=== PATIENT | female | born 1975 | race Caucasian/White ===

== ENCOUNTER → 2024-09-02 09:31 | Outpatient (BNVA) | payer BC, SELFPAY | PROVIDERS: Visit Provider Nurse Practitioner Psychiatric/Mental Health | DX: Z13.30 Encounter for screening examination for mental health and behavioral disorders, unspecified (principal); F11.21 Opioid dependence, in remission; F10.21 Alcohol dependence, in remission ==

== ENCOUNTER 2024-12-30 11:04 | Outpatient (AMB) | payer BC, SELFPAY ==
[2024-12-30 11:11] VITALS: BP 110/70; PULSE 62; RESP 19; O2SAT 98
--- NOTE | 2024-12-30 11:11 | A.OFFVISCC_ITS ---
Vital Signs 12/30/24 11:11 BP 110/70 Blood Pressure Location Rt brachial Position Sitting Respiration 19 Pulse 62 Pulse Source Pulse Oximeter Pulse Oximetry (%) 98 Intake Visit Reasons: MAT Allergies No Known Allergies Allergy (Verified 12/28/24 14:15) HPI HPI MAT: Details: Patient presents for follow up Has been taking 12mg QD (1/2 film in AM and lunch) Does not like splitting dose because she has lost film a couple of times Discussed taking full dose in AM to see if that was beneficial Review of Systems Const Reports as per HPI and Reports no additional complaints Physical Exam Vital Signs: Last Vital Signs Pulse 62 12/30/24 11:11 Resp 19 12/30/24 11:11 BP 110/70 12/30/24 11:11 Pulse Ox 98 12/30/24 11:11 Const General: cooperative and healthy appearing Nutritional Appearance: average body habitus Orientation/consciousness: patient oriented x3 Limitations: no limitations Neuro General: patient oriented x3 Psych Appearance: well kempt Speech and movement: Normal speech and movement present Affect: normal affect Attitude: cooperative Thought process: Normal thought process present Thought content: Normal thought content present Insight: Good insight present (Psych) Judgement: Good judgement present (Psych) Assessment & Plan Assessment & Plan (1) Opioid use disorder, severe, in sustained remission: Code(s): F11.21 - Opioid dependence, in remission Category: Medical Plan: * continue suboxone at 12mg daily * follow up 4 weeks (2) Alcohol use disorder, severe, in sustained remission: Code(s): F10.21 - Alcohol dependence, in remission Category: Medical Plan: * relapse prevention discussion Medications: Refilled buprenorphine-naloxone 12-3 mg (Suboxone) 1 film buccal Q24H 21 ea 1RF buprenorphine-naloxone 12-3 mg (Suboxone) 1 film buccal Q24H 30 ea 0RF
--- OUTSIDE RECORDS SUMMARY | 2024-12-30 12:54 | XMS_ITS | Encounter Summary ---
Author Organization [facility] Address [address] [place] [address] Care Team Providers Care Title Specialist Name Role Phone Esther, Pcp Primary Care Provider Priscila Minaya PA-C Primary Care Provider + Encounter Details Date Type Department Care Team Description 03/13/2016 Release of Information Medical Records [address] [place] [id number] Abstract, Provider Social History Tobacco Use Types Packs/Day Years Used Date Smoking Tobacco: Never Assessed Sex Assigned at Date Recorded Not on file documented as of this encounter Plan of Treatment Not on file documented as of this encounter Visit Diagnoses Not on filedocumented in this encounter Care Teams Title Specialist Relationship Specialty Start Date End Date Esther, Pcp PCP - General Internal Medicine 12/06/20 04/24/21 Priscila Boo PA-C PCP - General Internal Medicine 04/25/21 documented as of this encounter
--- OUTSIDE RECORDS SUMMARY | 2024-12-30 12:54 | XMS_ITS | Clinical Summary ---
Author Organization [facility] Address [address] [place] [address] Care Team Providers Care Barrel Centerer Name Role Phone Priscila Boo PA-C Primary Care Provider + Allergies No known active allergies Medications Medication Sig Dispensed Refills Start Date End Date Status Buprenorphine HCl-Naloxone HCl (SUBOXONE SL) Place 20 mg under the tongue daily. 0 Active busPIRone (BUSPAR) 7.5 MG tablet Take 1 Tab by mouth 3 times daily. 90 Tab 11 05/27/2016 Active Active Problems Problem Noted Date Abnormal CT of the abdomen 03/20/2016 Opiate addiction Overview: Quit 2007. Right shoulder pain DDD (degenerative disc disease), cervica l CTS (carpal tunnel syndrome) Overview: bilateral, NEOS Ovarian cyst Overview: left Abnormal EKG Tobacco use disorder Immunizations Name Administration Dates Next Due TD (STATE SUPPLIED FOR ADULTS AND CHILDREN) 05/03 Family History Medical History Relation Name Comments Cancer of the Breast Aunt 2 moms si de Cancer of the Breast Maternal Grandmother Cancer of the Lung Maternal Grandmother s moker Cancer of the Breast Mother Cancer of the Breast Paternal Grandmother Relation Name Status Comments Aunt 1 Aunt 2 Maternal Grandmother Mother Paternal Grandmother Social History Tobacco Use Types Packs/Day Years Used Date Smoking Tobacco: Every Day Cigarettes 1 30 Started: 1989 Smokeless Tobacco: Never Tobacco Cessation:Ready to Q uit: No; Counseling Given: Yes Alcohol Use Standard Drinks/Week Comments No 0 (1 standard drink = 0.6 oz pur e alcohol) Sex Assigned at Date Recorded Not on file Last Filed Vital Signs Vital Sign Reading Time Taken Comments Blood Pressure 100/66 05/27/2016 9:10 AM EDT Pulse 60 05/27/2016 9:10 AM EDT Temperature 36.9 ??C (98.4 ??F) 05/27/2016 9:10 AM ED T Respiratory Rate 16 05/27/2016 9:10 AM EDT Oxygen Saturation - - Inhaled Oxygen Concentration - - Weight 45.6 kg (100 lb 9.6 oz) 05/27/2016 9:10 A M EDT Height 154.9 cm (5' 1 ) 05/27/2016 9:10 AM EDT Body Mass Index 19.01 05/27/2016 9:10 AM EDT Plan of Treatment Health Maintenance Due Date Last Done Comments Covid-19 Vaccine (#1) 1974 MAMMOGRAM 2014 DTAP/TDAP/TD (1 - Tdap) 05/28/2016 05/27/2016 TOBACCO CHECK/ADVISE 03/20/2018 03/20/2016 BASELINE HEALTH EXAM 40-64 05/27/2018 05/27/2016 CERVICAL CANCER SCREENING 04/09/2019 04/09/2016 CHOLESTEROL SCREENING 03/21/2021 03/21/2016 COLON CANCER SCREENING 2024 SHINGLES VACCINE (1 of 2) 2024 INFLUENZA (#1) 2024 BMI CHECK/ADVISE 11/02/2024 PNEUMOCOCCAL VACCINE FOR HIGH RISK PATIENTS (#1) 05/10 Care Teams Barrel Centerer Relationship Specialty Start Date End Date Priscila Boo PA-C PCP - General Internal Medicine 04/25/21
== END 2024-12-30 11:32 | disposition home or self-care (01) ==
PROVIDERS: Visit Provider Nurse Practitioner Psychiatric/Mental Health
DX: F11.21 Opioid dependence, in remission (principal); F10.21 Alcohol dependence, in remission
CPT/HCPCS: 99214

== ENCOUNTER → 2024-12-30 11:04 | Outpatient (BNVA) | payer BC, SELFPAY | PROVIDERS: Visit Provider Nurse Practitioner Psychiatric/Mental Health ==

== ENCOUNTER 2025-02-13 13:44 | Outpatient (AMB) | payer BC, SELFPAY ==
--- NOTE | 2025-02-13 14:06 | MHC.OFFVIS ---
Vital Signs 02/13/25 14:08 Height 5 ft Weight 102 lb BMI 19.9 BP 132/78 Pulse 94 Pulse Oximetry (%) 97 Intake Visit Reasons: MAT Allergies No Known Allergies Allergy (Verified 02/13/25 14:09) HPI HPI MAT: Details: She is doing well on Suboxone 12/3 daily but was upset with wait. Review of Systems Const All systems reviewed & are unremarkable except as noted in HPI and below Physical Exam Vital Signs: Last Vital Signs Pulse 94 02/13/25 14:08 BP 132/78 02/13/25 14:08 Pulse Ox 97 02/13/25 14:08 BMI result Body Mass Index 19.9 Const General: cooperative Results AMB 14 Panel Urine Drug Screen Urine Marijuana (THC) Positive Last Edit by Matt Uriarte CMA on 02/13/25 14:14 Urine Cocaine Negative Last Edit by Matt Uriarte CMA on 02/13/25 14:14 Urine Morphine Negative Last Edit by Matt Uriarte CMA on 02/13/25 14:14 Urine Methamphetamine Negative Last Edit by Matt Uriarte CMA on 02/13/25 14:14 Urine Amphetamine Negative Last Edit by Matt Uriarte CMA on 02/13/25 14:14 Urine Benzodiazepine Negative Last Edit by Matt Uriarte CMA on 02/13/25 14:14 Urine Barbiturates Negative Last Edit by Matt Uriarte CMA on 02/13/25 14:14 Urine Methadone Negative Last Edit by Matt Uriarte CMA on 02/13/25 14:14 Urine Buprenorphine Positive Last Edit by Matt Uriarte CMA on 02/13/25 14:14 Urine Tricyclic Antidepressant Negative Last Edit by Matt Uriarte CMA on 02/13/25 14:14 Urine MDMA Negative Last Edit by Matt Uriarte CMA on 02/13/25 14:14 Urine Oxycodone Negative Last Edit by Matt Uriarte CMA on 02/13/25 14:14 Urine Phencyclidine Negative Last Edit by Matt Uriarte CMA on 02/13/25 14:14 Urine Propoxyphene Negative Last Edit by Matt Uriarte CMA on 02/13/25 14:14 AMB Test Urine AMB Test Urine Negative Last Edit by Matt Uriarte CMA on 02/13/25 14:14 Results Reviewed Results Reviewed: Laboratory Last Values [facility] Negative 02/13/25 14:10 POC Urine Buprenorphine Positive 02/13/25 14:10 POC Urine Morphine Negative 02/13/25 14:10 POC Urine Oxycodone Negative 02/13/25 14:10 POC Urine Methadone Negative 02/13/25 14:10 POC Urine Propoxyphene Negative 02/13/25 14:10 POC Urine Barbiturates Negative 02/13/25 14:10 POC U Tricyclic Antidpr Negative 02/13/25 14:10 POC Urine PCP Negative 02/13/25 14:10 POC Ur Amphetamines Negative 02/13/25 14:10 POC Ur Methamphetamine Negative 02/13/25 14:10 POC Urine MDMA Negative 02/13/25 14:10 POC Ur Benzodiazepine Negative 02/13/25 14:10 POC Urine Cocaine Negative 02/13/25 14:10 POC Ur Marijuana (THC) Positive 02/13/25 14:10 Assessment & Plan Assessment & Plan (1) Alcohol use disorder, severe, in sustained remission: Comment: She is doing well Code(s): F10.21 - Alcohol dependence, in remission Category: Medical Plan: See in two months. Check labs Hepatitis C and HIV and Hep B and others then. (2) Opioid use disorder, severe, in sustained remission: Code(s): F11.21 - Opioid dependence, in remission Category: Medical Plan: na Orders: Orders AMB 14 Panel Urine Drug Screen Today Z51.81 - Encounter for therapeutic drug level monitoring AMB HCG Urine Test Today Z32.02 - Encounter for test, result negative Medications: New buprenorphine-naloxone 12-3 mg (Suboxone) 1 film sublingual Q24H 30 days 30 ea 1RF Coding Level of Care Code Est Pt Level 3 (89084) Diagnoses Alcohol use disorder, severe, in sustained remission F10.21 Opioid use disorder, severe, in sustained remission F11.21
[2025-02-13 14:08] VITALS: BP 132/78; PULSE 94; O2SAT 97; BMI 19.9
== END 2025-02-13 14:37 | disposition home or self-care (01) ==
LOC: HO.HCC 13:44
PROVIDERS: Visit Provider Internal Medicine
DX: F10.21 Alcohol dependence, in remission (principal); F11.21 Opioid dependence, in remission; Z51.81 Encounter for therapeutic drug level monitoring; Z32.02 Encounter for pregnancy test, result negative
CPT/HCPCS: 99213

== ENCOUNTER → 2025-02-13 13:44 | Outpatient (BNVA) | payer BC, SELFPAY | PROVIDERS: Visit Provider Internal Medicine | DX: F11.21 Opioid dependence, in remission (principal); F10.21 Alcohol dependence, in remission; Z51.81 Encounter for therapeutic drug level monitoring; Z79.01 Long term (current) use of anticoagulants | CPT/HCPCS: 80307; 81025 ==

== ENCOUNTER 2025-03-24 13:15 | Outpatient (AMB) | payer BC, SELFPAY ==
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
[2025-03-24 13:28] VITALS: BP 123/68; PULSE 110; RESP 16; TEMP 36.8; O2SAT 95; BMI 19.8
== END 2025-03-24 14:29 | disposition home or self-care (01) ==
LOC: HO.HMCFM 13:16
PROVIDERS: Visit Provider Nurse Practitioner Family
DX: Z00.00 Encounter for general adult medical examination without abnormal findings (principal); F41.9 Anxiety disorder, unspecified; B18.2 Chronic viral hepatitis C; F32.A Depression, unspecified; F90.9 Attention-deficit hyperactivity disorder, unspecified type; F43.10 Post-traumatic stress disorder, unspecified; H40.9 Unspecified glaucoma; F10.90 Alcohol use, unspecified, uncomplicated; F17.210 Nicotine dependence, cigarettes, uncomplicated; Z12.2 Encounter for screening for malignant neoplasm of respiratory organs; Z12.31 Encounter for screening mammogram for malignant neoplasm of breast; Z12.11 Encounter for screening for malignant neoplasm of colon

== ENCOUNTER → 2025-03-24 13:15 | Outpatient (BNVA) | payer BC, SELFPAY | PROVIDERS: Visit Provider Nurse Practitioner Family | DX: Z00.00 Encounter for general adult medical examination without abnormal findings (principal); Z23 Encounter for immunization; F41.9 Anxiety disorder, unspecified; F32.A Depression, unspecified; F90.9 Attention-deficit hyperactivity disorder, unspecified type; F43.10 Post-traumatic stress disorder, unspecified; B18.2 Chronic viral hepatitis C; H40.9 Unspecified glaucoma; F10.90 Alcohol use, unspecified, uncomplicated; F17.210 Nicotine dependence, cigarettes, uncomplicated; Z71.85 Encounter for immunization safety counseling; Z13.30 Encounter for screening examination for mental health and behavioral disorders, unspecified | CPT/HCPCS: 90471; 90715; 96127 ==

== ENCOUNTER 2025-06-14 13:27 | Outpatient (AMB) | payer BC, SELFPAY ==
[2025-06-14 13:29] VITALS: BP 100/70; PULSE 98; O2SAT 96; BMI 20.5
--- NOTE | 2025-06-14 13:29 | A.OFFVIS_ITS ---
Vital Signs 06/14/25 13:29 Height 5 ft Weight 105 lb BMI 20.5 BP 100/70 Blood Pressure Location Lt brachial Pulse 98 Pulse Source Pulse Oximeter Pulse Oximetry (%) 96 Oxygen Delivery Method Room Air Intake Visit Reasons: MAT Allergies No Known Allergies Allergy (Verified 06/14/25 13:29) Medication List - Last Reconciled 06/14/25 by DENISSE Nichols methylphenidate HCl ER (Concerta) 36 mg PO DAILY nicotine 1 patch transdermal DAILY 6 weeks sertraline (Zoloft) 25 mg PO DAILY trazodone 50 mg PO BEDTIME PRN HPI Comments Details: A 50-year-old female presents for follow-up visit r/t CONSUELO in sustained remission. Reports mild cravings with buprenorphine-naloxone 12-3 mg daily and is requesting an increased dose. Denies use of opioids and other substances with the exception of intermittent alcohol consumption, smoking cigarettes and vaping cannabis. Education provided re: risk reducation to minimize quantity/frquency. [facility] Medical History (Updated 03/25/25 @ 07:17 by Rogelio Anna CNP) Back disorder Drug addiction PTSD (post-traumatic stress disorder) Bipolar 1 disorder Anxiety Hep C w/o coma, chronic Sinusitis Ovarian cyst Family History (Updated 03/24/25 @ 13:35 by Susi Sood MA) Mother Alcohol abuse FH: mental illness Substance abuse High blood pressure Breast cancer Maternal Grandmother Brain cancer Father Alcohol abuse Social History (Updated 03/24/25 @ 13:27 by Susi Sood MA) Housing: House Patient Tobacco Use Status: Current everyday Tobacco user Cigarette Packs Per Day: 1 Cigarettes Per Day: 20 e-Cigarette/Vaping Use: Never Used Second Hand Smoke Exposure: No Substance Use Type: Marijuana service: No Current occupational status: employed Current occupation: retail Current occupational exposures/hazards: No Cognitive needs: No Hearing needs: No Vision needs: Yes Review of Systems Const All systems reviewed & are unremarkable except as noted in HPI and below Physical Exam Vital Signs: Last Vital Signs Pulse 98 06/14/25 13:29 BP 100/70 06/14/25 13:29 Pulse Ox 96 06/14/25 13:29 Oxygen Delivery Method Room Air 06/14/25 13:29 BMI result Body Mass Index 20.5 Const General: cooperative and well groomed Orientation/consciousness: patient oriented x3 Limitations: no limitations Neuro General: patient oriented x3 Psych Appearance: well kempt Mental Status: mental status grossly normal Speech and movement: Normal speech and movement present Affect: normal affect Attitude: cooperative Thought process: Normal thought process present Thought content: Normal thought content present Insight: Good insight present (Psych) Judgement: Good judgement present (Psych) Assessment & Plan Assessment & Plan (1) Opioid use disorder, severe, in sustained remission: Code(s): F11.21 - Opioid dependence, in remission Category: Medical Plan Plan of care is to increase the dose of buprenorphine-naloxone from 12-3 mg daily to buprenorphine-naloxone 8-2 mg BID. Practice risk reduction for alcohol consumption, smoking, and vaping cannabis. Medications: New buprenorphine-naloxone 8-2 mg (Suboxone) Place 1 film on inside of (each) cheek, twice per day. 1 film sublingual BID 60 ea 1RF 30 days Patient Instructions: - Start on increased dose of buprenorphine-naloxone as prescribed. - Practice risk reduction for alcohol consumption, smoking, and vaping cannabis. - Follow-up in 2 months or sooner if needed. - Call with questions, concerns, or to report side effects/new onset of symptoms to [facility] or concerns. - The patient verbalized understanding and agreed with plan of care. Coding Level of Care Code Est Pt Level 4 (99287) Diagnoses Opioid use disorder, severe, in sustained remission F11.21
== END 2025-06-14 13:40 | disposition home or self-care (01) ==
LOC: HO.HCC 13:27
PROVIDERS: PCP Nurse Practitioner Family; Visit Provider Clinical Nurse Specialist Psychiatric/Mental Health
DX: F11.21 Opioid dependence, in remission (principal)
CPT/HCPCS: 99214

== ENCOUNTER 2025-08-16 14:18 | Outpatient (AMB) | payer BC, SELFPAY ==
[2025-08-16 14:39] VITALS: BP 120/76; PULSE 94; O2SAT 97
--- NOTE | 2025-08-16 14:39 | A.OFFVIS_ITS ---
Vital Signs 08/16/25 14:39 BP 120/76 Pulse 94 Pulse Oximetry (%) 97 Intake Visit Reasons: Mat Allergies No Known Allergies Allergy (Verified 08/16/25 14:40) HPI Comments Details: A 50-year-old female presents for a follow-up visit r/t CONSUELO in sustained remission with buprenorphine-naloxone 8-2 mg BID. Denies use of opiates, alcohol, and other substances does continue to smoke cigarettes and cannabis on a daily basis. Engages in conversation re: keeping busy by working and enjoys spending quality time with son and mother. [facility] Medical History Back disorder Drug addiction PTSD (post-traumatic stress disorder) Bipolar 1 disorder Anxiety Hep C w/o coma, chronic Sinusitis Ovarian cyst Family History Mother Alcohol abuse FH: mental illness Substance abuse High blood pressure Breast cancer Maternal Grandmother Brain cancer Father Alcohol abuse Social History Housing: House Patient Tobacco Use Status: Current everyday Tobacco user Cigarette Packs Per Day: 1 Cigarettes Per Day: 20 e-Cigarette/Vaping Use: Never Used Second Hand Smoke Exposure: No Substance Use Type: Marijuana service: No Current occupational status: employed Current occupation: retail Current occupational exposures/hazards: No Cognitive needs: No Hearing needs: No Vision needs: Yes Review of Systems Const All systems reviewed & are unremarkable except as noted in HPI and below Physical Exam Vital Signs: Last Vital Signs Pulse 94 08/16/25 14:39 BP 120/76 08/16/25 14:39 Pulse Ox 97 08/16/25 14:39 Const General: cooperative Assessment & Plan Assessment & Plan (1) Opioid use disorder, severe, in sustained remission: Code(s): F11.21 - Opioid dependence, in remission Category: Medical Plan The plan of care is to continue with buprenorphine-naloxone 8-2 mg BID, and engage in risk reduction activities to minimize cigarette/cannabis use. Follow-up in 2 months or sooner if needed. Medications: Refilled buprenorphine-naloxone 8-2 mg (Suboxone) Place 1 film on inside of (each) cheek, twice per day. 1 film sublingual BID 60 ea 1RF 30 days Patient Instructions: - Continue with buprenorphine-naloxone as prescribed. - Engage in risk reduction activities to minimize cigarette and cannabis use. - Follow-up in 2 months or sooner if needed. - Call with questions, concerns, or to report side effects/new onset of symptoms to [facility]. - The patient verbalized understanding and agreed with plan of care. Coding Level of Care Code Est Pt Level 3 (86445) Diagnoses Opioid use disorder, severe, in sustained remission F11.21
== END 2025-08-16 14:55 | disposition home or self-care (01) ==
LOC: HO.HCC 14:18
PROVIDERS: PCP Nurse Practitioner Family; Visit Provider Clinical Nurse Specialist Psychiatric/Mental Health
DX: F11.21 Opioid dependence, in remission (principal)
CPT/HCPCS: 99213

== ENCOUNTER 2025-10-02 14:10 | Outpatient (AMB) | payer BC, SELFPAY ==
[2025-10-02 14:20] VITALS: BP 120/70; PULSE 96; O2SAT 99
--- NOTE | 2025-10-02 14:20 | A.OFFVIS_ITS ---
Vital Signs 10/02/25 14:20 BP 120/70 Pulse 96 Pulse Oximetry (%) 99 Intake Visit Reasons: MAT Allergies No Known Allergies Allergy (Verified 10/02/25 14:20) HPI Comments Details: A 50-year-old female presents for a follow-up visit r/t CONSUELO in sustained remission with buprenorphine-naloxone 8-2 mg BID. Denies use of opiates, alcohol, and other substances does continue to smoke cigarettes and cannabis on a daily basis. Reports feeling happy as she was promoted at work and the position entails intermittent travel. [facility] Medical History Back disorder Drug addiction PTSD (post-traumatic stress disorder) Bipolar 1 disorder Anxiety Hep C w/o coma, chronic Sinusitis Ovarian cyst Family History Mother Alcohol abuse FH: mental illness Substance abuse High blood pressure Breast cancer Maternal Grandmother Brain cancer Father Alcohol abuse Social History Housing: House Patient Tobacco Use Status: Current everyday Tobacco user Cigarette Packs Per Day: 1 Cigarettes Per Day: 20 e-Cigarette/Vaping Use: Never Used Second Hand Smoke Exposure: No Substance Use Type: Marijuana service: No Current occupational status: employed Current occupation: retail Current occupational exposures/hazards: No Cognitive needs: No Hearing needs: No Vision needs: Yes Review of Systems Const All systems reviewed & are unremarkable except as noted in HPI and below Physical Exam Vital Signs: Last Vital Signs Pulse 96 10/02/25 14:20 BP 120/70 10/02/25 14:20 Pulse Ox 99 10/02/25 14:20 Const General: cooperative Assessment & Plan Assessment & Plan (1) Opioid use disorder, severe, in sustained remission: Code(s): F11.21 - Opioid dependence, in remission Category: Medical Plan The plan is to continue with buprenorphine-naloxone 8-2 mg BID and engage in risk reduction activities to minimize cannabis and cigarette use. Follow-up in 3 months or sooner if needed. Medications: Changed From buprenorphine-naloxone 8-2 mg (Suboxone) Place 1 film on inside of (each) cheek, twice per day. 1 film sublingual BID 30 days 60 ea 1RF To buprenorphine-naloxone 8-2 mg (Suboxone) One film sublingually twice per day 1 film sublingual BID 60 ea 2RF 30 days Patient Instructions: - Continue with buprenorphine-naloxone as prescribed. - Engages in risk reduction activities to minimize cigarette and cannabis use. - Follow-up in 3 months or sooner if needed. - Call with questions, concerns, or to report side effects/new onset of symptoms to [facility]. - The patient verbalized understanding and agreed with plan of care. Coding Level of Care Code Est Pt Level 3 (61793) Diagnoses Opioid use disorder, severe, in sustained remission F11.21
== END 2025-10-02 14:27 | disposition home or self-care (01) ==
LOC: HO.HCC 14:10
PROVIDERS: PCP Nurse Practitioner Family; Visit Provider Clinical Nurse Specialist Psychiatric/Mental Health
DX: F11.21 Opioid dependence, in remission (principal)
CPT/HCPCS: 99213